=== PATIENT | female | born 1995 | race Caucasian/White ===

== ENCOUNTER 2024-10-24 06:18 | Outpatient (CLI) | payer OTHER, SELFPAY | END 2024-10-24 06:19 | disposition home or self-care (01) | LOC: AMB 11-24 10:17 | PROVIDERS: Visit Provider Family Medicine | DX: O26.899 Other specified pregnancy related conditions, unspecified trimester (principal); R11.2 Nausea with vomiting, unspecified; R19.7 Diarrhea, unspecified | CPT/HCPCS: A0998 ==

== ENCOUNTER 2025-05-09 01:24 | Emergency (ER) | payer OTHER, SELFPAY ==
[2025-05-09 01:25] VITALS: RESP 16; O2SAT 99
--- OUTSIDE RECORDS SUMMARY | 2025-05-09 01:26 | XMS_ITS | Encounter Summary ---
Author Organization [facility] Address [address] [place] [address]. [place] [address] Care Team Providers Care Ore Puncher Name Role Phone Madeline Mandujano MD Primary Care Provider Unavailabl e Anselmo Barraza MD Unavailable [phone] Luana Barraza MD Unavailable [phone] Luana Barraza MD Unavailable [phone] [facility] Unavail able Alexandria Chavez MD Unavailable [phone] No Ref-Primary, Physician Primary Care Provider Encounter Details Date Type Department Care Team (Late st Contact Info) Description 03/20/2024 MyC Medical Advice [facility] [place] [address] [place] [phone] Rosalinda Aaron RN Social History Tobacco Use Types Packs/Day Years Used Date Smoking Tobacco: Never Smokeless Tobacco: Never Alcohol Use Standard Drinks/Week Comments No 0 (1 standard drink = 0.6 oz pur e alcohol) PHQ-2 Answer Date Recorded PHQ-2 Score 0 03/20/2024 Adolescent Education Answer Date Record ed Getting School Help Needed Not on file 03/17 Comments Yes Sex and Gender Information Value Date Recorded Sex Assigned at Female 04/22/2024 11:19 AM CDT Legal Sex Female 3:09 AM GRINDING AND SPRAYING SUPERVISOR Gender Identity Female 04/22/2024 11:19 AM CDT Sexual Orientation Straight 04/22/2024 11 :19 AM CDT 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 Not on file Not on olga e documented as of this encounter Plan of Treatment Not on file documented as of this encounter Visit Diagnoses Not on filedocumented in this encounter Care Teams Ore Puncher Relationship Specialty Start Date End Date Madeline Mandujano MD PCP - General Internal Medicine 03/02/19 11/14/24 No Ref-Primary, Physician PCP - General 12/08/24 Anselmo Barraza MD [address] [address] Physician lead advisor 03/09/24 Luana Barraza MD [address] [place] [address] lead advisor 03/09/24 Luana Barraza MD [address] [place] [address] Assigned OBGYN Provider 05/09/2408/[address] [address] Assigned PCP 06/09/24 Alexandria Chavez MD [address] [address] Assigned OBGYN Provider 08/09/24 documented as of this encounter
--- OUTSIDE RECORDS SUMMARY | 2025-05-09 01:26 | XMS_ITS | Encounter Summary ---
Author Organization [facility] Address [address] [place] [address] Care Team Providers Care On Car Supervisor Name Role Phone Anselmo Barraza MD Unavailable [phone] Luana Barraza MD Unavailable [phone] [facility] Unavail able Alexandria Chavez MD Unavailable [phone] No Ref-Primary, Physician Primary Care Provider Reason for Visit * Reason Onset Date Comments Appointment 11/24/2024 Post Encounter Details Date Type Department Care Team (Late st Contact Info) Description 11/24/2024 Telephone [facility] [address] [place] [address] Alexandria Chavez MD [address] [place], [place] [id number] Appointment (Post ) Social History Tobacco Use Types Packs/Day Years Used Date Smoking Tobacco: Never Smokeless Tobacco: Never Alcohol Use Standard Drinks/Week Comments No 0 (1 standard drink = 0.6 oz pur e alcohol) PHQ-2 Answer Date Recorded PHQ-2 Score 0 05/25/2024 [place] Depression Scale Answer Date Recorded Last EPDS Total Score Not on file 11/12/2024 The thought of harming myself has occurred to me . Never 11/12/2024 Adolescent Education Answer Date Record ed Getting School Help Needed Not on file 03/17 Food Insecurity Answer Date Recorded Within the past 12 months, d id you worry that your food would run out before you got money to buy more? No 11/10/2024 Within the past 12 months, d id the food you bought just not last and you didn t have money to get more? No 11/10/2024 Housing Stability Answer Date Recorded Do you have housing? (Housin g is defined as stable permanent housing and does not include staying outside in a car, in a tent, in an abandoned building, in an overnight long-term, or couch-surfing.) Yes 11/10/2024 Are you worried about losing your housing? No 11/10/2024 Financial Resource Strain Answer Date R ecorded Within the past 12 months, h ave you or your family members you live with been unable to get utilities (heat, electricity) when it was really needed? No 11/10/2024 Transportation Needs Answer Date Record ed Within the past 12 months, h as lack of transportation kept you from medical appointments, getting your medicines, non-medical meetings or appointments, work, or from getting things that you need? No 11/10/2024 Interpersonal Safety Answer Date Record ed Do you feel physically and e motionally safe where you currently live? Yes 11/10/2024 Within the past 12 months, h ave you been hit, slapped, kicked or otherwise physically hurt by someone? No 11/10/2024 Within the past 12 months, h ave you been humiliated or emotionally abused in other ways by your partner or ex-partner? 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 States she has not had a bowel movement in a few days. She has been taking colace but it giving her stomach cramps but she still has not been able to go to bathroom. Advised to drink 64-100oz of water daily, try miralax or metamucil, and prune juice. If no relief advised to try glycerin suppository and if no relief from that can try enema. Pt verbalized understanding and will call back with any needs or concerns. PP appt scheduled. Rosibel Milton RN Matheny GRISELMadhuri PULLER * Telephone Encounter - Radha Toure - 11/24/2024 11:58 AM CST [facility] Call Center Phone Message May a detailed message be left on voicemail: yes Reason for Call: Symptoms or Concerns If patient has red-flag symptoms, warm transfer to triage line Current symptom or concern: Constipation Symptoms have been present for: Unknown Has patient previously been seen for this? Yes By Dr. Chavez Are there any new or worsening symptoms? Yes: Pt is requesting a call back to discuss her constipation and to schedule her [address] Chavez. Tool Procurement Coordinator had nothing available in timeframerequested. Please review and call back to advise at # [phone]. Action Taken: Message routed to: Other: [facility] Travel Screening: Not Applicable Date of Service: PULLER documented in this encounter Plan of Treatment Not on file documented as of this encounter Visit Diagnoses Not on filedocumented in this encounter Care Teams On Car Supervisor Relationship Specialty Start Date End Date No Ref-Primary, Physician PCP - General 12/08/24 Anselmo Barraza MD [address] [address] Physician cafeteria table attendant 03/09/24 Luana Barraza MD [address] [place] [address] MD cafeteria table attendant 03/09/24 [facility] - [address] [id number] Assigned PCP 06/09/24 Alexandria Chavez MD [address] [address] Assigned OBGYN Provider 08/09/24 documented as of this encounter
--- OUTSIDE RECORDS SUMMARY | 2025-05-09 01:26 | XMS_ITS | Encounter Summary ---
Author Organization [facility] Address [address] [place] [address]. [place] [address] Care Team Providers Care Strategic Debriefing Specialist Name Role Phone Madeline Mandujano MD Primary Care Provider Unavailabl e Anselmo Barraza MD Unavailable [phone] Luana Barraza MD Unavailable [phone] Luana Barraza MD Unavailable [phone] [facility] Unavail able Alexandria Chavez MD Unavailable [phone] No Ref-Primary, Physician Primary Care Provider Encounter Details Date Type Department Care Team (Late st Contact Info) Description 03/17/2024 MyC Medical Advice [facility] [place] [address] [place] [phone] Rosalinda Aaron RN Social History Tobacco Use Types Packs/Day Years Used Date Smoking Tobacco: Never Smokeless Tobacco: Never Alcohol Use Standard Drinks/Week Comments No 0 (1 standard drink = 0.6 oz pur e alcohol) PHQ-2 Answer Date Recorded PHQ-2 Score 0 03/20/2024 Adolescent Education Answer Date Record ed Getting School Help Needed Not on file 03/17 Comments No Sex and Gender Information Value Date Recorded Sex Assigned at Female 04/22/2024 11:19 AM CDT Legal Sex Female 3:09 AM POSSUM TRAPPER Gender Identity Female 04/22/2024 11:19 AM CDT Sexual Orientation Straight 04/22/2024 11 :19 AM CDT documented as of this encounter Plan of Treatment Not on file documented as of this encounter Visit Diagnoses Not on filedocumented in this encounter Care Teams Strategic Debriefing Specialist Relationship Specialty Start Date End Date Madeline Mandujano MD PCP - General Internal Medicine 03/02/19 11/14/24 No Ref-Primary, Physician PCP - General 12/08/24 Anselmo Barraza MD [address] [address] Physician chief bank examiner 03/09/24 Luana Barraza MD [address] [place] [address] MD chief bank examiner 03/09/24 Luana Barraza MD [address] [place] [address] Assigned OBGYN Provider 05/09/2408/08 [facility] - [address] [address] Assigned PCP 06/09/24 Alexandria Chavez MD [address] [address] Assigned OBGYN Provider 08/09/24 documented as of this encounter
--- OUTSIDE RECORDS SUMMARY | 2025-05-09 01:26 | XMS_ITS | Encounter Summary ---
Author Organization [facility] Address [address] [place] [address] Care Team Providers Care Turnaround Engineer Name Role Phone Madeline Mandujano MD Primary Care Provider Unavailabl Anselmo Ding MD Unavailable [phone] Luana Barraza MD Unavailable [phone] [facility] Unavail able Alexandria Chavez MD Unavailable [phone] No Ref-Primary, Physician Primary Care Provider Encounter Details Date Type Department Care Team (Late st Contact Info) Description 11/10/2024 MyC Medical Advice [facility] [place] [address] [place] [address] Alexandria Chavez MD [address], [address] [place], [place] [address] Social History Tobacco Use Types Packs/Day Years Used Date Smoking Tobacco: Never Smokeless Tobacco: Never Alcohol Use Standard Drinks/Week Comments No 0 (1 standard drink = 0.6 oz pur e alcohol) PHQ-2 Answer Date Recorded PHQ-2 Score 0 05/25/2024 [place] Depression Scale Answer Date Recorded Last EPDS [...] in an abandoned building, in an overnight correction, or couch-surfing.) Yes 11/10/2024 Are you worried [...] your partner or ex-partner? 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 Not on file Not on olga e documented as of this encounter Plan of Treatment Not on file documented as of this encounter Visit Diagnoses Not on filedocumented in this encounter Care Teams Turnaround Engineer Relationship Specialty Start Date End Date Madeline Mandujano MD PCP - General Internal Medicine 03/02/19 11/14/24 No Ref-Primary, Physician PCP - General 12/08/24 Anselmo Barraza MD [address] [address] Physician teachers' assistant 03/09/24 Luana Barraza MD [address] [place] [address] teachers' assistant 03/09/24 [facility] - [address] [address] Assigned PCP 06/09/24 Alexandria Chavez MD [address] [address] Assigned OBGYN Provider 08/09/24 documented as of this encounter
--- OUTSIDE RECORDS SUMMARY | 2025-05-09 01:26 | XMS_ITS | Encounter Summary ---
Author Organization [facility] Address [address] [place] [address]. [place] [address] Care Team Providers Care Cereal Maker Name Role Phone Anselmo Barraza MD Unavailable [phone] Luana Barraza MD Unavailable [phone] [facility] Unavail able Alexandria Chavez MD Unavailable [phone] No Ref-Primary, Physician Primary Care Provider Encounter Details Date Type Department Care Team (Late st Contact Info) Description 11/16/2024 MyC Medical Advice [facility] [address] [place] [phone] Rosibel Milton, RN Social History Tobacco Use Types Packs/Day Years Used Date Smoking Tobacco: Never Smokeless Tobacco: Never Alcohol Use Standard Drinks/Week Comments No 0 (1 standard drink = 0.6 oz pur e alcohol) PHQ-2 Answer Date Recorded PHQ-2 Score 0 05/25/2024 [place] Depression Scale Answer Date Recorded Last EPDS [...] Answer Date Recorded Do you have housing? 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 Not on file Not on olga e documented as of this encounter Plan of Treatment Not on file documented as of this encounter Visit Diagnoses Not on filedocumented in this encounter Care Teams Cereal Maker Relationship Specialty Start Date End Date No Ref-Primary, Physician PCP - General 12/08/24 Anselmo Barraza MD [address] [address] Physician roof cement and paint maker helper 03/09/24 Luana Barraza MD [address] [place] [address] MD roof cement and paint maker helper 03/09/[address] [address] Assigned PCP 06/09/24 Alexandria Chavez MD [address], [address] [address] Assigned OBGYN Provider 08/09/24 documented as of this encounter
--- OUTSIDE RECORDS SUMMARY | 2025-05-09 01:26 | XMS_ITS | Clinical Summary ---
Author Organization [facility] Address [address] [place] [address]. [place] [address] Care Team Providers Care Studio Assistant Name Role Phone Anselmo Barraza MD Unavailable [phone] Luana Barraza MD Unavailable [phone] [facility] Unavail able Alexandria Chavez MD Unavailable [phone] No Ref-Primary, Physician Primary Care Provider Allergies No known active allergies Medications Vit-Fe Fumarate-FA ( MULTIVITAMIN W/IRON) 27-0.8 MG tablet Take 1 tablet by mouth daily Active Active Problems Problem Noted Date Diagnosed Date Encounter for triage in patient 025 Labor and delivery, indication for care 11/10/19 25 Normal labor and delivery 11/10/2024 Mixed anxiety and depressive disorder 03/20/2024 Hypoalbuminemia 12/02/2021 History of alcohol use disorder 11/07/2021 Overview (03/20/2024): 02/01/2023 Continues to be sober! Last Assessment & Plan: No relapse, continues sobriety. Anxiety 02/14/2019 Moderate episode of recurrent major depressive d isorder 02/14/2019 Attention deficit disorder (ADD) without hyperac tivity 02/14/2019 CARDIOVASCULAR SCREENING; LDL GOAL LESS THAN 160 02/14/2019 Flat foot (pes planus) (acquired), right foot Immunizations Immunization Administration Dates Next Due Influenza, Split Virus, Triv alent, Pf (Fluzone\Fluarix) 07/24/2024 MMR (MMRII) 01/12/2000,04/06/1996 RSV (Abrysvo) 09/18/2024 TDAP (Adacel,Boostrix) 09/08/2024 TDAP Vaccine (Adacel) 12/31/2016 Family History Medical History Relation Comments Other Cancer Maternal Grandmother Coronary Artery Disease Paternal Grandmother Diabetes Type 2 Paternal Grandmother Relation Status Comments Brother 1 Alive Brother 2 Alive Father Alive Maternal Grandfather Alive Maternal Grandmother Mother Alive Paternal Grandfather Alive Paternal Grandmother Social History Tobacco Use Types Packs/Day Years Used Date Smoking Tobacco: Never Smokeless Tobacco: Never Tobacco Cessation:Counseling Given: No Alcohol Use Standard Drinks/Week Comments No 0 (1 standard drink = 0.6 oz pur e alcohol) PHQ-2 Answer Date Recorded PHQ-2 Score 0 12/08/2024 [place] Depression Scale Answer Date Recorded [place] Depression Scale Total 0 12/25/2024 The thought of harming myself has occurred to me . Never 12/25/2024 Adolescent Education Answer Date Record ed Getting [...] in an abandoned building, in an overnight mcfp, or couch-surfing.) Yes 11/10/2024 Are you worried [...] AM CDT Legal Sex Female 3:09 AM SUPERVISOR PHOS[employer]IL[employer] Gender Identity Female 04/22/2024 11:19 AM CDT Sexual Orientation Straight 04/22/2024 11 :19 AM CDT Occupation Industry Job Start Date Job End Date [employer] Not on file Not on file Not on olga e Last Filed Vital Signs Vital Sign Reading Time Taken Comments Blood Pressure 100/70 12/25/2024 1:10 PM CDT Pulse 75 11/12/2024 9:34 AM SUPERVISOR [employer] Temperature 36.9 C (98.5 F) 11/12/2024 9:34 AM SUPERVISOR PHOSPHATIC FERTILIZER Respiratory Rate 16 11/12/2024 9:34 AM SUPERVISOR PHOSPHATIC FERTILIZER Oxygen Saturation 100% 11/10/2024 3:07 PM SUPERVISOR [employer]OS[employer]IL[employer]ER Inhaled Oxygen Concentration - - Weight 92.5 kg (204 lb) 12/25/2024 1:10 PM CDT Height 175.3 cm (5' 9) 12/25/2024 1:10 PM CDT Body Mass Index 30.13 12/25/2024 1:10 PM CDT Plan of Treatment Health Maintenance Due Date Last Done Comments ADVANCE CARE PLANNING 1995 ANNUAL REVIEW OF HM ORDERS 1995 DEPRESSION ACTION PLAN 1995 PHQ-9 1995 YEARLY PREVENTIVE VISIT 02/02/2024 02/01/2023, 02/10 COVID-19 VACCINE ( season) 2024 10/02/2021, 02/28/2021 INFLUENZA VACCINE (#1) 2025 , 12/02/2021, 10/21/2018, Additional history exists PAP 04/17/2027 04/17/2024, 11/18, 05/01/2018 DTAP/TDAP/TD VACCINE (10 - Td or Tdap) 09/08/2034 09/08/2024, 12/31/2016, 05/26/2016, Additional history exists ZOSTER VACCINE (1 of 2) 2045 HEPATITIS B VACCINE Completed 1995, 1995, 1995, Additional history exists HPV VACCINE Completed 2012, 12/11/2010, 06/23/2011 MENINGITIS VACCINE Completed 03/28/2013, 0 03/28/2013, 02/21/2007, Additional history exists HEPATITIS C SCREENING Completed 04/04/2024 HIV SCREENING Completed 04/04/2024, 11/07/2021 CHLAMYDIA SCREENING Discontinued 04/17/2024, 8 RSV VACCINE Discontinued 09/18/2024 PNEUMOCOCCAL VACCINE: PEDIATRICS (0 to 5 YEARS) AND AT-RISK PATIENTS (6 to 49 YEARS) Aged Out No longer eligible based on patient's age to complete this topic Procedures Procedure Name Priority Date/Time Associated Diagnosis Comments CHLAMYDIA TRACHOMATIS PCR Routine 04/17/2024 10:07 AM CDT Supervision of normal first , antepartum Screening examination for STI GYNECOLOGIC CYTOLOGY Routine 04/17/2024 10:02 AM CDT Screening for cervical cancer HIV ANTIGEN ANTIBODY COMBO Routine 04/04/2024 10:17 AM CDT Encounter for supervision of normal first in first trimester HEPATITIS C ANTIBODY Routine 04/04/2024 10:17 AM CDT Encounter for supervision of normal first in first trimester from Last 3 Months or Most Recently Relevant to Health Maintenance Results * CHLAMYDIA TRACHOMATIS PCR (04/17/2024 10:07 AM CDT) Chlamydia trachomatis Negative Negative 04/17/2024 5:00 PM CDT [facility] Comment:A negative result by kardex clerk mediated amplification does not preclude the presence of C. trachomatis infection because results are dependent on proper and adequate collection, absence of inhibitors and sufficient rRNA to be detected. Swab CERVIX UTERI STRUCTURE / Unknown Non-blood Collection / Unknown 04/17/2024 10:07 AM CDT 04/17/2024 10:46 AM CDT us Luana Barraza MD LAB - MICRO GENERAL ORDERABLES Final Result [facility] Inf. Diseases Diag. Lab [address] [facility], [address] [place] [phone] * Pap Screen Reflex to HPV if ASCUS - Recommended Age 25 - 29 Years (04/17/2024 10:02 AM CDT) Interpretation Negative for Intraepithelial Lesion or Malignancy (NILM) 04/21/2024 9:34 AM CDT [facility] at 0934 CDT Comment Papanicolaou Test Limitations: Cervical cytology is a screening test with limited sensitivity, and regular screening is critical for cancer prevention. Pap tests are primarily effective for the diagnosis/prevent ion of squamous cell carcinoma, not adenocarcinoma or other cancers. 04/21/2024 9:34 AM CDT [facility] Specimen Adequacy Satisfactory for evaluation, endocervical/hopper sformation zone component absent 04/21/2024 9:34 AM CDT [facility] Clinical Information 04/21/2024 9:34 AM CDT [facility] Reflex Testing Yes if ASCUS 04/21/20 9:34 AM CDT [facility] Previous Abnormal? No 04/21/2024 9:34 AM CDT [facility] Performing Labs The technical component of this testing was completed at [facility]. Stain controls for all stains resulted within this report have been reviewed and show appropriate reactivity. 04/21/2024 9:34 AM CDT [facility] Brushing ENDOCERVICAL STRUCTURE / Unknown Non-blood Collection / Unknown 04/17/2024 10:02 AM CDT 04/17/2024 10:47 AM CDT Luana Barraza MD LAB - BEAKER AP Final Result [facility] Specialty Lab [address] [place] [address], [address] [phone] * HIV Antigen Antibody Combo (04/04/2024 10:17 AM CDT) HIV Antigen Antibody Combo Nonreactive Nonreactive 04/05/2024 12:52 AM CDT [facility] Comment:Negative HIV-1 p24 a ntigen and HIV-1/2 antibody screening test results usually indicate the absence of HIV-1 and HIV-2 infection. However, such negative results do not rule-out acute HIV infection. If acute HIV-1 or HIV-2 infection is suspected, detection of HIV-1 or HIV-2 RNA is recommended. Blood BLOOD SPECIMEN / Unknown Venipuncture / Unknown 04/04/2024 10:17 AM CDT 04/04/2024 10:17 AM CDT Luana Barraza MD LAB - BLOOD ORDERABLES Final R esult Performing Organization Address City/[facility]/ZIP Co de Phone Number [facility]ATORY [facility] [address] [place] [address], [address] [phone] * Hepatitis C antibody (04/04/2024 10:17 AM CDT) Hepatitis C Antibody Nonreactive Nonreactive 04/04/2024 10:31 PM CDT [facility] Comment:A nonreactive screen ing test result does not exclude the possibility of exposure to or infection with HCV. Nonreactive screening test results in individuals with prior exposure to HCV may be due to antibody levels below the limit of detection of this assay or lack of reactivity to the HCV antigens used in this assay. Patients with recent HCV infections (<3 months from time of exposure) may have false- negative HCV antibody results due to the time needed for seroconversion (average of 8 to 9 weeks). Blood BLOOD SPECIMEN / Unknown Venipuncture / Unknown 04/04/2024 10:17 AM CDT 04/04/2024 10:17 AM CDT us Luana Barraza MD LAB - BLOOD ORDERABLES Final R esult [facility] [address] [facility] [address] [facility], [address] [place] [address], [facility] from Last 3 Months or Most Recently Relevant to Health Maintenance [facility] [id number] [id number] [employer] Advance Directives For more information, please contact: [phone] * Full Code (Latest Code Status on File) Date Activated Date Inactivated Comments 11/10/2024 2:51 AM 11/10/2024 10:10 PM All basic a nd advanced life-sustaining interventions are performed as appropriate Question Answer Comments Code status determined by: Discussion with marine nt/ legal decision maker Care Teams Studio Assistant Relationship Specialty Start Date End Date No Ref-Primary, Physician PCP - General 12/08/24 Anselmo Barraza MD [address] [address] Physician area secretary 03/09/24 Luana Barraza MD [address] [place] [address] area secretary 03/09/24 Clinic - [facility] [id number] [place] [id number] Assigned PCP 06/09/24 Alexandria Chavez MD [address], [address] [address] Assigned OBGYN Provider 08/09/24
[2025-05-09 01:32] VITALS: BP 124/77; PULSE 75; RESP 18; TEMP 36.9; O2SAT 99; BMI 30.6
--- NOTE | 2025-05-09 03:13 | ED.GENADULT ---
HPI - General Adult General Date Seen: 05/09/25 Chief complaint: Unspecified Complaint, Adult Stated complaint: Hemorrhoid pain Time Seen by Provider: 05/09/25 02:19 Source: patient and family (mother) Mode of arrival: ambulatory History of Present Illness HPI narrative: Barb is 30-year-old female with past medical history of hemorrhoids, recently approximately 5-6 months status post who presents emergency department for evaluation of hemorrhoids. Patient reports longstanding history of hemorrhoids (6 years) however reports significantly worsening pain over the past few days. Patient states he initially noticed severe pain on Wednesday night, reports most painful hemorrhoid she has ever experienced. Patient has been taking ibuprofen, Tylenol, preparation H, lidocaine with no improvement of symptoms. Patient was seen in clinic as well today at [place] and was referred to General surgery and is waiting to hear back for an appointment. Patient states that she cannot take the pain, unable to rest, sleep, or get up and do daily activities. Patient denies any fever, chills, nausea, vomiting, abdominal pain. Patient denies any bloody stools. Patient does report she did have blood in her stool for the past 1 and half months however reports that this stopped approximately 1 week ago. Patient reports last bowel movement was this morning. No other complaints. Related Data Home Medications ?Medication ?Instructions ?Recorded ?Confirmed No Known Home Medications 05/09/25 05/09/25 Allergies Allergy/AdvReac Type Severity Reaction Status Date / Time No Known Drug Allergies Allergy Verified 05/09/25 01:35 Review of Systems Narrative: Past medical history, past surgical history, medications, allergies, family history, and social history were reviewed with the patient. No additional pertinent items. A medically appropriate review of systems was performed with pertinent positives and negatives noted in HPI, all other systems negative. PFSH PFS Social History Smoking Status: Never smoker Second hand tobacco smoke exposure: No How often do you have a drink containing alcohol: never AUDIT-C Alcohol total score: 0 Non-prescribed substance use: denies use Exam Narrative: Exam Narrative: General: Afebrile, in distress secondary to pain HEENT: Normocephalic, atraumatic, conjunctiva normal. MMM Neck: non-tender, supple Cardio: regular rate. regular rhythm Resp: Normal work of breathing, no respiratory distress, lungs clear bilaterally, no wheezing, rhonchi, rales Chest/Back: no visual signs of trauma, no midline tenderness, no CVA tenderness Abdomen: soft, non distension, no tenderness, no peritoneal signs; rectal examination with large external hemorrhoid, no active bleeding, significant tenderness to palpation, no evidence of thrombosis/clot Neuro: alert and fully oriented. CN II-XII grossly intact. Grossly normal strength and sensation in all extremities. MSK: no deformities. Normal range of motion Integumentary/Skin: no rash visualized, normal color Psych: normal affect, normal behavior Const: Vital Signs, click to edit/add: Vital Signs - 24 hr 05/09/25 01:25 05/09/25 01:32 Temperature 98.5 F Pulse Rate [Right Pulse Oximeter] 75 Respiratory Rate 18 Respiratory Rate [ Hemorrhoid] 16 Blood Pressure [Ri ght Upper Arm] 124/77 Pulse Oximetry 99 Oxygen Delivery Me thod Room Air Course Vital Signs Vital signs: Initial Vital Signs Respiratory Rate 16 05/09/25 01:25 Vital Signs Respiratory Rate 16 05/09/25 01:25 Temperature 98.5 F 05/09/25 01:32 Pulse Rate 75 05/09/25 01:32 Respiratory Rate 18 05/09/25 01:32 Blood Pressure 124/77 05/09/25 01:32 Pulse Oximetry 99 05/09/25 01:32 Oxygen Delivery Method Room Air 05/09/25 01:32 Medications Administered Medications: Generic Name Dose Route Start Last Admin Trade Name Freq PRN Reason Stop Dose Admin Lidocaine HCl 6 ml 05/09/25 03:15 05/09/25 03:34 Lidocaine Hcl 2 % Jelly (Top) Sterile TOPICAL 05/09/25 03:16 6 ml ONCE ONE Administration Oxycodone HCl 5 mg 05/09/25 03:15 05/09/25 03:32 Oxycodone 5 Mg Tablet PO 05/09/25 03:16 5 mg ONCE ONE Administration Medical Decision Making [facility] Narrative Medical decision making narrative: Barb is 30-year-old female with past medical history of hemorrhoids, recently approximately 5-6 months status post who presents emergency department for evaluation of hemorrhoids. Upon arrival patient is nontoxic appearing, afebrile, in distress secondary to pain. Patient hemodynamically stable vital signs within normal limits. On examination patient with large external hemorrhoid, no active bleeding, no evidence of thrombosis/clot. Patient has been treating hemorrhoid appropriately with Tylenol, ibuprofen, Preparation-H, Sitz baths, stool softeners, lidocaine. Patient was seen in clinic earlier today and has a referral pending for General surgery. I discussed with patient unable to remove hemorrhoid in the Emergency Department, no evidence of thrombosis/clot at this time that can be excised. The patient was treated with 1 dose of oxycodone however did discuss with patient typically do not treat with opioid pain medications that this can worsen symptoms. I think it is reasonable given patient's severe pain to give her 1 time dose in the emergency department in hopes to help provide some pain relief so that she can rest and continue supportive care at home. Lidocaine jelly also applied to hemorrhoid. 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 Strict return precautions discussed. Patient understands and agrees with the plan. Discharge Plan Discharge Clinical Impression: External hemorrhoid Patient Disposition: Home, Self-Care Condition: Stable Additional Instructions: Please follow-up with your primary care provider as well as General surgery for further evaluation and follow-up. We will have our schedulers call to try to arrange a follow-up appointment with General surgery. Please continue all medications. Please continue Tylenol, ibuprofen as needed for pain, preparation H, lidocaine jelly, Sitz baths, and stool softeners. Return to the emergency department if any worsening symptoms. Prescriptions: No Action No Known Home Medications Follow Up/Referrals: Provider,Not a Local [Primary Care Provider, Family Practice] Stand Alone Forms: [employer] Info Instructions
[2025-05-09] MEDS: lidocaine HCL 2 % JELLY (TOP) STERILE 6 ML TOPICAL (03:34)
[2025-05-09 03:46] VITALS: BP 128/74; PULSE 70; RESP 18; TEMP 36.9; O2SAT 99
[2025-05-09 03:51] VITALS: BP 128/74; PULSE 70; RESP 18; TEMP 36.9
== END 2025-05-09 03:54 | disposition home or self-care (01) ==
PROVIDERS: Emergency Provider Emergency Medicine
DX: K64.8 Other hemorrhoids (principal)
CPT/HCPCS: 99283; 99285; A9270